=== PATIENT | female | born 1955 | race Asian ===

== ENCOUNTER 2019-08-01 19:13 | Outpatient (CLI) | payer OTHER ==
[2019-08-01 20:03] LABS: PLATELET COUNT 332 K/uL (152-353)
== END 2019-08-01 21:54 | disposition home or self-care (01) ==
LOC: LAB 19:13
PROVIDERS: Family Medicine
DX: R68.89 Other general symptoms and signs (principal); Z79.899 Other long term (current) drug therapy
CPT/HCPCS: 85027; 85651; 86140

== ENCOUNTER 2021-09-26 10:46 | Outpatient (CLI) | payer OTHER | END 2021-09-26 21:01 | disposition home or self-care (01) | LOC: MAMMO 10:46 | PROVIDERS: ATTEND Nurse Practitioner Family | DX: Z12.31 Encounter for screening mammogram for malignant neoplasm of breast (principal) ==

== ENCOUNTER 2021-10-29 11:15 | Outpatient (CLI) | payer OTHER | END 2021-10-29 19:20 | disposition home or self-care (01) | LOC: RAD 11:15 | PROVIDERS: ATTEND Nurse Practitioner Family | DX: M54.89 Other dorsalgia (principal); M54.10 Radiculopathy, site unspecified ==

== ENCOUNTER 2023-02-18 08:29 | Outpatient (CLI) | payer OTHER | END 2023-02-18 19:24 | disposition home or self-care (01) | LOC: MAMMO 08:29 | PROVIDERS: ATTEND Internal Medicine | DX: Z12.31 Encounter for screening mammogram for malignant neoplasm of breast (principal) ==